=== PATIENT | male | born 1990 | race Caucasian/White ===

== ENCOUNTER 2016-12-24 16:33 | Emergency (ER) | payer SELFPAY ==
[~2016-12-24] VITALS: Ht 165.1 cm; Wt 109.0 kg
[2016-12-24 16:37] VITALS: BP 140/84
== END 2016-12-24 17:57 | disposition left against medical advice (07) ==
LOC: ER 16:33
DX: R10.9 Unspecified abdominal pain (principal); Z53.21 Procedure and treatment not carried out due to patient leaving prior to being seen by health care provider

== ENCOUNTER 2017-06-27 19:50 | Emergency (ER) | payer SELFPAY ==
[~2017-06-27] VITALS: Ht 167.6 cm; Wt 116.0 kg
[2017-06-27 20:15] VITALS: BP 136/77
[2017-06-27] MEDS ORDERED: IBUPROFEN 200MG TABLET ONE (20:25)
== END 2017-06-28 02:00 | disposition left against medical advice (07) ==
LOC: ER 21:57
DX: R10.30 Lower abdominal pain, unspecified (principal); Z53.21 Procedure and treatment not carried out due to patient leaving prior to being seen by health care provider